=== PATIENT | female | born 1950 | race Caucasian/White ===

== ENCOUNTER → 2016-07-06 | Outpatient (CLI) | payer MEDICARE, OTHER ==
[2016-07-06 10:15] LABS: MAGNESIUM* 1.6 mg/dL (1.6-2.3)
== END ==
LOC: LAB 08:29
PROVIDERS: ATTEND Internal Medicine Cardiovascular Disease
DX: B25.9 Cytomegaloviral disease, unspecified (principal); E78.5 Hyperlipidemia, unspecified; D89.9 Disorder involving the immune mechanism, unspecified
CPT/HCPCS: 36415; 80048; 80197; 82040; 82465; 83735; 84478; 87497

== ENCOUNTER → 2016-07-07 | Outpatient (CLI) | payer MEDICARE, OTHER ==
[2016-07-07 10:03] LABS: BASOPHILS % (AUTO) 0 % (0-2); EOSINOPHILS # (AUTO) 0.1 10^3uL; EOSINOPHILS % (AUTO) 2 % (0-4); LYMPHOCYTES # (AUTO) 0.2 X10^3; MEAN CORPUSCULAR HGB CONC 34.2 g/dL (31.0-37.0); MONOCYTES # (AUTO) 0.4 X10^3; MONOCYTES % (AUTO) 13 % (3-11); NEUTROPHILS # (AUTO) 2.6 X10^3; NEUTROPHILS % (AUTO) 81 % (51-67); PLATELET COUNT 142 10^3uL (150-450); WHITE BLOOD COUNT 3.19 10^3uL (4.0-11.0)
[2016-07-07 10:05] LABS: MEAN CORPUSCULAR HEMOGLOBIN 33.9 PG (26.0-34.0); MEAN CORPUSCULAR VOLUME 99 FL (80-100)
== END ==
LOC: LAB 08:10
PROVIDERS: ATTEND Internal Medicine Cardiovascular Disease
DX: B25.9 Cytomegaloviral disease, unspecified (principal); Z94.1 Heart transplant status; E78.5 Hyperlipidemia, unspecified; D89.9 Disorder involving the immune mechanism, unspecified
CPT/HCPCS: 36415; 85025

== ENCOUNTER → 2016-09-13 | Outpatient (CLI) | payer MEDICARE, OTHER ==
[2016-09-13 10:30] LABS: MEAN CORPUSCULAR HGB CONC 32.4 g/dL (31.0-37.0); MEAN PLATELET VOLUME 9.6 FL (6.0-9.5); PLATELET COUNT 114 10^3uL (150-450); WHITE BLOOD COUNT 3.82 10^3uL (4.0-11.0)
[2016-09-13 10:55] LABS: ABSOLUTE RETIC # 31 10^3uL (22-82); MEAN CORPUSCULAR HEMOGLOBIN 32.8 PG (26.0-34.0); MEAN CORPUSCULAR VOLUME 101 FL (80-100)
[2016-09-13 11:03] LABS: ALBUMIN 2.8 g/dL (3.4-5.0); ANION GAP 12.2 MEQ/L (3-15); CALCULATED IONIZED CALCIUM 4.2 mg/dL (3.8-4.6); TOTAL PROTEIN 5.4 g/dL (6.4-8.5)
[2016-09-13 11:16] LABS: BAND NEUTROPHILS % 2 % (0-6); SEGMENTED NEUTROPHILS % 88 % (51-67)
[2016-09-13 11:18] LABS: EOSINOPHILS % 1 % (0-4); LYMPHOCYTES # 0.1 #; MONOCYTES # 0.2 #; MONOCYTES % 6 % (3-11); RBC MORPH NORMAL (NORMAL); TOTAL CELLS COUNTED 100
[2016-09-15 17:57] LABS: LAMBDA LIGHT CHAINS SERUM 7.46 mg/dL
== END ==
LOC: LAB 10:18
PROVIDERS: ATTEND Internal Medicine Hematology & Oncology
DX: D64.9 Anemia, unspecified (principal)
CPT/HCPCS: 36415; 80053; 82728; 83540; 83550; 83615; 83883; 85025; 85045

== ENCOUNTER → 2016-09-21 | Outpatient (CLI) | payer MEDICARE, OTHER ==
[2016-09-21 15:38] LABS: MEAN CORPUSCULAR HGB CONC 32.1 g/dL (31.0-37.0); MEAN PLATELET VOLUME 9.5 FL (6.0-9.5); PLATELET COUNT 130 10^3uL (150-450); WHITE BLOOD COUNT 3.85 10^3uL (4.0-11.0)
[2016-09-21 15:41] LABS: ABSOLUTE RETIC # 39 10^3uL (22-82); MEAN CORPUSCULAR HEMOGLOBIN 33.2 PG (26.0-34.0); MEAN CORPUSCULAR VOLUME 103 FL (80-100)
[2016-09-21 16:39] LABS: BAND NEUTROPHILS % 3 % (0-6); LYMPHOCYTES # 0.2 #; SEGMENTED NEUTROPHILS % 84 % (51-67)
[2016-09-21 16:40] LABS: EOSINOPHILS % 1 % (0-4); MONOCYTES # 0.2 #; MONOCYTES % 6 % (3-11); RBC MORPH NORMAL (NORMAL); TOTAL CELLS COUNTED 100
[2016-09-21 20:49] LABS: VITAMIN B 12 463 pg/mL (213-816)
== END ==
LOC: LAB 15:08
PROVIDERS: ATTEND Internal Medicine Hematology & Oncology
DX: D61.818 Other pancytopenia (principal)
CPT/HCPCS: 36415; 82607; 82668; 82746; 83010; 83615; 83921; 85008; 85025; 85045; 87497